=== PATIENT | female | born 1985 | race Caucasian/White ===

== ENCOUNTER 2020-04-25 04:33 | Observation (INO) | payer BC ==
[2020-04-25 05:00] VITALS: BMI 28.8
[2020-04-25 05:45] LABS: #Eosinphils 0.1 thou/uL (0.0-0.7); #Lymphocytes 1.4 thou/uL (1.20-3.40); #Monocytes 0.6 thou/uL (0.11-0.59); #Neutrophils 6.9 thou/uL (1.40-6.50); %Basophils 0.4 % (0.0-1.0); %Eosinophils 0.7 % (0.0-10.0); %Monocytes 6.9 % (0.0-10.0); Hemoglobin 11.8 g/dL (12.0-16.0); Mean Corpuscular HGB CONC 34.2 g/dL (32.0-36.0); Mean Corpuscular Hemoglobin 31.7 pg (27.0-31.0); Mean Corpuscular Volume 92.8 fL (78.0-98.0); Mean Platelet Volume 7.6 fL (7.4-10.4); Platelet Count 151 thou/uL (130-400); RBC Distribution Width 11.6 % (11.5-14.5); Red Blood Cell (RBC) Count 3.71 mill/uL (4.20-5.40)
[2020-04-25 05:53] LABS: Bacteria/HPF None Seen HPF (None Seen); Bilirubin Negative (Negative); Blood, Urine 1+ (Negative); Clarity Turbid (Clear); Glucose, Urine (Dipstick) Normal (Negative); Ketone, Urine Negative (Negative); Leukocyte 500 Leu/uL (Negative); Nitrite Negative (Negative); Protein, Urine (Dipstick) 100 mg/dL (Neg-Trace); RBC/HPF Greater than 50 HPF (0-3); Specific Gravity, Urine 1.014 (1.002-1.036); Squamous Epithelial None Seen HPF (0-3); Urobilinogen Normal mg/dL (Less than 2); WBC/HPF Greater than 50 HPF (0-3)
[2020-04-25] MEDS ORDERED: Levothyroxine Sodium 88 MCG TAB PO SCH (06:00)
[2020-04-25 06:03] LABS: Urine Culture Reflex Yes Yes
[2020-04-25] MEDS: Sodium Chloride 0.9% 1,000 ML IV SCH ×2 (06:30→07:35)
--- NOTE | 2020-04-25 06:51 | PDOC.LDHP ---
Labor and Delivery H&P Chief complaint: abdominal pain HPI: 35 y/o at 36w1d, patient of [facility], presents with abdominal pain. She thought it was ctx and was sent in since she is . After discussing with the patient, the pain is mostly on the right flank and radiating to the right suprapubic area. She endorses dysuria with significant pain since Saturday. Denies VB, LOF, or decreased FM. ROS neg for HEENT, CV, pulm, GI, , neuro, psych, skin, musculoskeletal, or constitutional symptoms other than mentioned above. OB History Details: 1 term Current complications: none Past Medical History: Hx UTIs, hypothyroidism, hip dsyplasia Current medications: pre- vitamins, other (levothyroxine 88 mcg) Previous surgical history: other (Lasik) Allergies/Adverse Reactions: Allergies Allergy/AdvReac Type Severity Reaction Status Date / Time iron Allergy Verified 04/25/20 05:16 spironolactone Allergy Verified 04/25/20 05:16 [From Aldactone] sulfamethoxazole Allergy Verified 04/25/20 05:16 [From Bactrim] trimethoprim [From Bactrim] Allergy Verified 04/25/20 05:16 Social history: none - Physical Exam Vital signs reviewed and normal: yes General: NAD (appears uncomfortable) Abdomen: gravid (right sided CVA tenderness) Extremeties: no edema FHT: category 1 (135, mod variability, + accels, no decels) [place] contractions every: 15 mins - Assessment 35 y/o at 36w1d with complicated UTI vs right sided kidney stone. UA with protein, LE, but no bacteria seen. WBC wnl. status reassuring with reactive NST. - Plan -: Will get renal ultrasound and start IV fluids. Continue to monitor.
[2020-04-25] MEDS ORDERED: Acetaminophen 500 MG TAB PO SCH (07:09)
[2020-04-25] MEDS ORDERED: Calcium Carbonate 500 MG ChewTAB PO PRN (07:16)
[2020-04-25] MEDS ORDERED: Ondansetron ODT 4 MG TAB PO PRN (07:16)
[2020-04-25] MEDS ORDERED: Ondansetron PF 4 MG/2 ML Vial IVP PRN (07:16)
[2020-04-25] MEDS ORDERED: Polyethylene Glycol 3350 17 GM Packet PO PRN (07:27)
[2020-04-25] MEDS ORDERED: Sodium Chloride 0.9% 1,000 ML IV SCH (07:30)
--- NOTE | 2020-04-25 07:42 | ULT ---
Renal sonogram HISTORY: Flank pain. FINDINGS: Right kidney is 11.0 cm length. Mild prominence of the renal collecting system. No mass or stones visible. Urinary bladder is unremarkable. Left kidney is 12.1 cm with a normal appearance. IMPRESSION : Very mild right hydronephrosis, not beyond that expected with hydronephrosis of .
[2020-04-25] MEDS ORDERED: Acetaminophen 500 MG TAB PO PRN (07:53)
--- NOTE | 2020-04-25 07:58 | PDOC.BPN ---
- Brief Progress Note Encounter Date: 04/25/20 Encounter Time: 07:55 US not consistent with stone. Admit for IV antibiotics for pyelonephritis and IV hydration. Patient also having a lot of constipation and requesting miralax. May take probiotics from home if desired. Also requesting GBS culture, as she was supposed to have that done early this week.
[2020-04-25 08:30] LABS: ALT (SGPT) 8 U/L (8-55); AST (SGOT) 15 U/L (5-34); Alkaline Phosphatase 84 U/L (40-110); Anion Gap 11 mmol/L (10-20); BUN (Urea Nitrogen) 6 mg/dL (7.0-18.7); Bilirubin, Total 0.4 mg/dL (0.2-1.2); Calc. Creatinine Clearance 177 mL/min (70-130); Calcium 7.5 mg/dL (7.8-10.44); Carbon Dioxide 22 mmol/L (22-29); Chloride 109 mmol/L (98-107); Estimated GFR-MDRD Greater than 90; Globulin 2.7 g/dL (2.4-3.5); Glucose 81 mg/dL (70-105); Potassium 3.7 mmol/L (3.5-5.1); Protein, Total 5.7 g/dL (6.0-8.3); Sodium 138 mmol/L (136-145)
[2020-04-25] MEDS ORDERED: cefTRIAXone\\ROCEPHIN 2 GM in Sodium Chloride 0.9% 100 ML IVPB SCH (09:00)
[2020-04-25 13:36] VITALS: BP 98/56; TEMP 97.6
[2020-04-25] MEDS ORDERED: FLU VACC QS2020-21(6MOS UP)/PF 60 MCG/0.5 ML SYRINGE IM ONE (21:00)
--- NOTE | 2020-04-26 02:42 | DIS ---
DATE OF ADMISSION: 04/25/2020 DATE OF DISCHARGE: 04/25/2020 ADMITTING DIAGNOSES: 1. Intrauterine at 36 weeks. 2. Severe flank pain. 3. Suspected pyelonephritis. DISCHARGE DIAGNOSES: 1. Intrauterine at 36 weeks. 2. Severe flank pain. 3. Suspected pyelonephritis. 4. Flank pain, resolving. HOSPITAL COURSE: Patient is a 35-year-old G2, P1 female, with an intrauterine at 36 weeks, who is being cared for [facility], who presented to Labor and Delivery with a 1-day history of increasing right flank pain, dysuria. In her evaluation, she was suspected to have a complicated UTI versus pyelonephritis versus a right-sided kidney stone. Patient was admitted for observation. A renal ultrasound was performed and 2 g of Rocephin IV were given as well as IV hydration and Tylenol for pain control. Patient upon me coming onto duty reported that her pain in her back was improving. She has not had any fever or rigors with this presentation in either at home or here in the hospital. After discussing the course of care with the patient and that the patient has significantly improved symptomatically with very little flank pain and less dysuria, no fever or other concerning symptoms, patient was given the option of discharging home with plans to return tomorrow for a shot of Rocephin. Initially, patient had chosen to stay, however, several hours later, patient has decided that she would like to go home with plans to return tomorrow for a Rocephin shot. I think this is a reasonable option as the patient has no acute symptoms warranting hospitalization. She has been given instructions to return back to the hospital should she experience rigors or fever. PHYSICAL EXAMINATION: VITAL SIGNS: She will be discharged home with discharge vital signs; temperature 97.6 this morning, pulse of 82, respiratory rate of 18, saturating 98% on room air, and blood pressure 98/56. GENERAL: She appears to be in no acute distress. She is alert and oriented, cooperative, and pleasant to interact with. HEAD: Normocephalic and atraumatic. BACK: CVA tenderness to palpation is minimal. DISCHARGE INSTRUCTIONS: She has a prescription for Keflex 500 mg, taken three times a day for the next 5 days, now sent to the pharmacy with instructions to start that on 24 hours after her next dose of Rocephin. She will subsequently get started on Keflex prophylactically over the next several weeks until she delivers. Patient can follow up with her optical fabrication technician, Bentley Cook, for continued care. Job ID: [id number]
== END 2020-04-25 14:30 | disposition home or self-care (01) ==
LOC: L&D/OP 04:33 → L&D 07:16 → INTOOBSV 07:16 → 3SW 08:31
PROVIDERS: ADMIT Obstetrics & Gynecology; ATTEND Obstetrics & Gynecology
DX: O99.891 Other specified diseases and conditions complicating pregnancy (principal); N13.30 Unspecified hydronephrosis; O23.43 Unspecified infection of urinary tract in pregnancy, third trimester; B95.7 Other staphylococcus as the cause of diseases classified elsewhere; O99.283 Endocrine, nutritional and metabolic diseases complicating pregnancy, third trimester; E03.9 Hypothyroidism, unspecified; Z3A.36 36 weeks gestation of pregnancy; Z79.899 Other long term (current) drug therapy; Z88.2 Allergy status to sulfonamides; Z88.8 Allergy status to other drugs, medicaments and biological substances
CPT/HCPCS: 36415; 76770; 80053; 81001; 85025; 87077; 87081; 87086; 96365; G0378; J0696; J3490

== ENCOUNTER 2020-04-26 07:23 | Day surgery (SDC) | payer BC ==
[2020-04-26] MEDS ORDERED: hydrALAZINE 20 MG/ML VIAL SLOW IVP PRN ×2 (07:40→08:19)
[2020-04-26] MEDS ORDERED: cefTRIAXone\\ROCEPHIN 1 GM VIAL IM SCH (07:45)
[2020-04-26] MEDS ORDERED: Lidocaine 1% PF 5 ML VIAL ONE (07:50)
--- NOTE | 2020-04-26 09:00 | PRG ---
DATE OF SERVICE: 04/26/2020 SUBJECTIVE: The patient is a 35-year-old female, who was seen yesterday and admitted to observation for concerns of pyelonephritis. Over the course of the day, the patient was feeling much better. Had never had fever or any systemic symptoms. The patient was given the option for discharge home and to return today for IM injection of Rocephin. This morning, the patient denies any fever or rigors at home, and she reports that she feels much better and that her back pain is nearly resolved. OBJECTIVE: VITAL SIGNS: This morning, blood pressure 116/68, heart rate of 77, respiratory rate of 16, and temperature 98.2. GENERAL: She appears to be in no acute distress. She is alert, oriented, cooperative, and pleasant to interact with. HEENT: Head is normocephalic and atraumatic. LUNGS: Clear to auscultation bilaterally. HEART: Has regular rate and rhythm. She does have some suprapubic tenderness to palpation, still says no CVA tenderness on the right side, which is much improved from yesterday. ASSESSMENT AND PLAN: The patient is a 35-year-old female with an early pyelonephritis versus complicated urinary tract infection, here for second shot of Rocephin. She has no evidence of worsening disease. She will be given 1 g Rocephin IM and be discharged home. She does have a prescription for Keflex 500 mg, taken three times a day. We are awaiting urine culture. We will be contacting Jazmin Armasluisraza within the next day or two with that information and make changes as necessary. Job ID: [id number]
--- NOTE | 2020-04-27 14:55 | PDOC.EVN ---
Event Note - Event Note Event Note: I have contacted patient to give urine culture results. GBS cx still pending. Pt will continue keflex 500mg tid x5 days. Will recommend urine cx in 2 weeks for JEAN MARIE. Will forward gbs results to [facility]
== END 2020-04-26 08:06 | disposition home or self-care (01) ==
LOC: L&D/OP 07:23
PROVIDERS: ATTEND Obstetrics & Gynecology
DX: O23.43 Unspecified infection of urinary tract in pregnancy, third trimester (principal); B95.7 Other staphylococcus as the cause of diseases classified elsewhere; O09.523 Supervision of elderly multigravida, third trimester; Z3A.36 36 weeks gestation of pregnancy; Z88.2 Allergy status to sulfonamides; Z88.8 Allergy status to other drugs, medicaments and biological substances
CPT/HCPCS: 96372; 99281; J0696

== ENCOUNTER 2021-01-28 02:48 | Emergency (ER) | payer BC ==
[2021-01-28 03:21] LABS: Bilirubin Negative (Negative); Blood, Urine 3+ (Negative); Clarity Extra Turbid (Clear); Glucose, Urine (Dipstick) Normal (Negative); Ketone, Urine Negative (Negative); Leukocyte 500 Leu/uL (Negative); Nitrite Negative (Negative); Protein, Urine (Dipstick) 100 mg/dL (Neg-Trace); Specific Gravity, Urine 1.021 (1.002-1.036); Urobilinogen Normal mg/dL (Less than 2); pH, Urine 5.5 (5.0-9.0)
[2021-01-28 03:40] LABS: Bacteria/HPF None Seen HPF (None Seen); RBC/HPF 0-3 HPF (0-3); Squamous Epithelial None Seen HPF (0-3); WBC/HPF None Seen HPF (0-3)
[2021-01-28 04:08] LABS: Pregnancy Test - Urine (BHCG) Negative (Negative); Pregu Control Background? CLEAR/WHITE (CLR/WHITE); Pregu Control Bar Appear? YES (CONTROL BAR); Specific Gravity 1.022 (1.002-1.036)
[2021-01-28] MEDS ORDERED: Morphine 4 MG/ML VIAL ONE (04:13)
[2021-01-28] MEDS ORDERED: Ondansetron PF 4 MG/2 ML Vial ONE (04:13)
[2021-01-28] MEDS ORDERED: Acetaminophen 500 MG TAB ONE (04:19)
[2021-01-28 04:22] LABS: #Basophils 0.1 thou/uL (0.0-0.2); #Eosinphils 0.2 thou/uL (0.0-0.7); #Lymphocytes 1.9 thou/uL (1.20-3.40); #Monocytes 0.6 thou/uL (0.11-0.59); #Neutrophils 6.5 thou/uL (1.40-6.50); %Basophils 0.7 % (0.0-1.0); %Eosinophils 1.9 % (0.0-10.0); %Lymphocytes 20.5 % (21.0-51.0); %Monocytes 6.4 % (0.0-10.0); %Neutrophils 70.5 % (42.0-75.0); Hemoglobin 12.7 g/dL (12.0-16.0); Mean Corpuscular HGB CONC 34.4 g/dL (32.0-36.0); Mean Corpuscular Volume 92.9 fL (78.0-98.0); Platelet Count 218 thou/uL (130-400); RBC Distribution Width 11.1 % (11.5-14.5); Red Blood Cell (RBC) Count 3.96 mill/uL (4.20-5.40); White Blood Cell (WBC) Count 9.2 thou/uL (4.8-10.8)
[2021-01-28 04:45] LABS: ALT (SGPT) 11 U/L (8-55); AST (SGOT) 17 U/L (5-34); Albumin 3.9 g/dL (3.5-5.0); Alkaline Phosphatase 49 U/L (40-110); Anion Gap 11 mmol/L (10-20); BUN (Urea Nitrogen) 14 mg/dL (7.0-18.7); Bilirubin, Total 0.4 mg/dL (0.2-1.2); Calc. Creatinine Clearance 0 mL/min (70-130); Calcium 8.5 mg/dL (7.8-10.44); Carbon Dioxide 24 mmol/L (22-29); Chloride 109 mmol/L (98-107); Globulin 2.8 g/dL (2.4-3.5); Glucose 86 mg/dL (70-105); Potassium 3.6 mmol/L (3.5-5.1); Protein, Total 6.7 g/dL (6.0-8.3); Sodium 140 mmol/L (136-145)
== END 2021-01-28 06:22 | disposition home or self-care (01) ==
LOC: ERS 02:48
DX: R31.9 Hematuria, unspecified (principal); R10.9 Unspecified abdominal pain; R30.0 Dysuria
CPT/HCPCS: 74176; 80053; 81003; 81015; 81025; 85025; 87077; 87086; 87186; J2270; J2405

== ENCOUNTER 2021-01-28 11:58 | Emergency (ER) | payer BC | END 2021-01-28 12:18 | disposition left against medical advice (07) | LOC: ERS 11:58 | DX: Z53.21 Procedure and treatment not carried out due to patient leaving prior to being seen by health care provider (principal) ==

== ENCOUNTER 2021-11-12 13:06 | Emergency (ER) | payer BC ==
[2021-11-12] MEDS ORDERED: Morphine 4 MG/ML VIAL ONE (13:51)
[2021-11-12] MEDS ORDERED: Haloperidol Lactate 5 MG/ML VIAL ONE (13:51)
[2021-11-12] MEDS ORDERED: Ondansetron PF 4 MG/2 ML Vial ONE (13:51)
[2021-11-12] MEDS ORDERED: diphenhydrAMINE 50 MG/ML VIAL ONE (13:51)
[2021-11-12 14:01] LABS: #Lymphocytes 1.7 thou/uL (1.20-3.40); #Monocytes 0.5 thou/uL (0.11-0.59); #Neutrophils 5.8 thou/uL (1.40-6.50); %Basophils 0.5 % (0.0-1.0); %Eosinophils 0.3 % (0.0-10.0); %Lymphocytes 21.3 % (21.0-51.0); %Monocytes 5.6 % (0.0-10.0); %Neutrophils 72.2 % (42.0-75.0); Hemoglobin 13.9 g/dL (12.0-16.0); Mean Corpuscular HGB CONC 33.5 g/dL (32.0-36.0); Mean Corpuscular Hemoglobin 29.8 pg (27.0-31.0); Mean Corpuscular Volume 89.1 fL (78.0-98.0); Mean Platelet Volume 7.2 fL (7.4-10.4); Platelet Count 301 thou/uL (130-400); RBC Distribution Width 11.8 % (11.5-14.5); Red Blood Cell (RBC) Count 4.66 mill/uL (4.20-5.40)
[2021-11-12 14:10] LABS: BHCG - Serum Negative (NEGATIVE); Pregs Control Background? CLEAR/WHITE (CLR/WHITE); Pregs Control Bar Appear? YES (CONTROL BAR)
[2021-11-12 14:22] LABS: ALT (SGPT) 14 U/L (8-55); AST (SGOT) 16 U/L (5-34); Albumin 4.8 g/dL (3.5-5.0); Alkaline Phosphatase 41 U/L (40-110); Anion Gap 13 mmol/L (10-20); BUN (Urea Nitrogen) 5 mg/dL (7.0-18.7); Bilirubin, Total 0.5 mg/dL (0.2-1.2); Calc. Creatinine Clearance 0 mL/min (70-130); Calcium 9.5 mg/dL (7.8-10.44); Carbon Dioxide 25 mmol/L (22-29); Chloride 101 mmol/L (98-107); Globulin 3.3 g/dL (2.4-3.5); Glucose 123 mg/dL (70-105); Lipase 43 U/L (8-78); Potassium 3.2 mmol/L (3.5-5.1); Protein, Total 8.1 g/dL (6.0-8.3); Sodium 136 mmol/L (136-145)
[2021-11-12] MEDS ORDERED: Iopamidol-370 76% 500 ML 1 ML ONE (14:41)
[2021-11-12 16:02] LABS: Bacteria/HPF None Seen HPF (None Seen); Bilirubin Negative (Negative); Blood, Urine 1+ (Negative); Clarity Clear (Clear); Glucose, Urine (Dipstick) Normal (Negative); Ketone, Urine 10 mg/dL (Negative); Leukocyte Negative Leu/uL (Negative); Nitrite Negative (Negative); Protein, Urine (Dipstick) Negative (Neg-Trace); RBC/HPF 0-3 HPF (0-3); Specific Gravity, Urine 1.018 (1.002-1.036); Squamous Epithelial None Seen HPF (0-3); Urobilinogen Normal mg/dL (Less than 2); WBC/HPF 0-3 HPF (0-3)
[2021-11-12 16:04] LABS: Pregnancy Test - Urine (BHCG) Negative (Negative)
[2021-11-12 16:08] LABS: Pregu Control Background? CLEAR/WHITE (CLR/WHITE); Pregu Control Bar Appear? YES (CONTROL BAR); Specific Gravity 1.018 (1.002-1.036)
== END 2021-11-12 16:51 | disposition home or self-care (01) ==
LOC: ERS 13:06
DX: K52.9 Noninfective gastroenteritis and colitis, unspecified (principal); D64.9 Anemia, unspecified; E03.9 Hypothyroidism, unspecified; Z79.899 Other long term (current) drug therapy
CPT/HCPCS: 36415; 74177; 80053; 81003; 81015; 81025; 83690; 84703; 85025; 96374; 96375; J1200; J1630; J2270; J2405; Q9967

== ENCOUNTER 2021-11-29 15:52 | Emergency (ER) | payer BC ==
[2021-11-29 16:17] LABS: #Basophils 0.1 thou/uL (0.0-0.2); #Eosinphils 0.1 thou/uL (0.0-0.7); #Lymphocytes 1.8 thou/uL (1.20-3.40); #Monocytes 0.5 thou/uL (0.11-0.59); #Neutrophils 3.4 thou/uL (1.40-6.50); %Basophils 1.2 % (0.0-1.0); %Eosinophils 2.3 % (0.0-10.0); %Lymphocytes 30.1 % (21.0-51.0); %Monocytes 8.2 % (0.0-10.0); %Neutrophils 58.3 % (42.0-75.0); Hemoglobin 11.7 g/dL (12.0-16.0); Mean Corpuscular HGB CONC 31.4 g/dL (32.0-36.0); Mean Corpuscular Hemoglobin 28.7 pg (27.0-31.0); Mean Corpuscular Volume 91.4 fL (78.0-98.0); Mean Platelet Volume 7.2 fL (7.4-10.4); Platelet Count 246 thou/uL (130-400); Red Blood Cell (RBC) Count 4.08 mill/uL (4.20-5.40); White Blood Cell (WBC) Count 5.9 thou/uL (4.8-10.8)
[2021-11-29 16:41] LABS: ALT (SGPT) 13 U/L (8-55); AST (SGOT) 19 U/L (5-34); Albumin 4.2 g/dL (3.5-5.0); Alkaline Phosphatase 41 U/L (40-110); Anion Gap 13 mmol/L (10-20); BUN (Urea Nitrogen) 10 mg/dL (7.0-18.7); Bilirubin, Total 0.2 mg/dL (0.2-1.2); Calc. Creatinine Clearance 0 mL/min (70-130); Calcium 8.7 mg/dL (7.8-10.44); Carbon Dioxide 23 mmol/L (22-29); Chloride 106 mmol/L (98-107); Glucose 111 mg/dL (70-105); Lipase 55 U/L (8-78); Potassium 3.8 mmol/L (3.5-5.1); Protein, Total 7.2 g/dL (6.0-8.3); Sodium 138 mmol/L (136-145)
[2021-11-29] MEDS ORDERED: Ondansetron PF 4 MG/2 ML Vial ONE (16:52)
[2021-11-29] MEDS ORDERED: Morphine 4 MG/ML VIAL ONE (16:52)
[2021-11-29 17:09] LABS: BHCG - Serum Negative (NEGATIVE); Pregs Control Background? CLEAR/WHITE (CLR/WHITE); Pregs Control Bar Appear? YES (CONTROL BAR)
[2021-11-29] MEDS ORDERED: Ketorolac Tromethamine 30 MG/ML VIAL ONE (19:01)
== END 2021-11-29 19:21 | disposition home or self-care (01) ==
LOC: ERS 15:52
DX: K52.9 Noninfective gastroenteritis and colitis, unspecified (principal); G89.29 Other chronic pain; R00.1 Bradycardia, unspecified; E03.9 Hypothyroidism, unspecified; D64.9 Anemia, unspecified; Z87.19 Personal history of other diseases of the digestive system; Z79.899 Other long term (current) drug therapy
CPT/HCPCS: 36415; 76705; 80053; 82274; 83605; 83630; 83690; 84703; 85025; 87040; 87324; 87427; 87449; 93005; 96374; 96375; J1885; J2270; J2405

== ENCOUNTER 2022-01-05 12:15 | Outpatient (CLI) | payer BC | END 2022-01-05 12:16 | disposition home or self-care (01) | LOC: BICULT 12:15 → ULT 12:15 | PROVIDERS: ATTEND Nurse Practitioner Family | DX: R10.11 Right upper quadrant pain (principal); K52.9 Noninfective gastroenteritis and colitis, unspecified; K82.0 Obstruction of gallbladder; R11.15 Cyclical vomiting syndrome unrelated to migraine | CPT/HCPCS: 76700 ==